=== PATIENT | male | born 1995 | race Caucasian/White ===

== ENCOUNTER 2019-05-11 17:04 | Emergency (ER) | payer OTHER ==
[~2019-05-11] VITALS: Ht 177.8 cm; Wt 69.1 kg
[2019-05-11] MEDS ORDERED: TETRACAINE 0.5% OPHTH SOLN 4ML OS ONE (21:45)
[2019-05-11] MEDS ORDERED: FLUORESCEIN OPHTH 1 MG STRIP OS ONE (21:45)
[2019-05-11] MEDS ORDERED: CIPROFLOXACIN 0.3% OPHTH SOLN 2.5ML OS STA (22:09)
[2019-05-11] MEDS ORDERED: CIPR0.3S OS (22:13)
[2019-05-11 22:29] VITALS: BP 140/80
== END 2019-05-11 22:27 | disposition home or self-care (01) ==
LOC: M ED 17:04 → MERGE 17:04 → M ED 22:27
DX: H57.12 Ocular pain, left eye (principal); W31.1XXA Contact with metalworking machines, initial encounter; Y92.89 Other specified places as the place of occurrence of the external cause; Z88.1 Allergy status to other antibiotic agents; Z88.2 Allergy status to sulfonamides